=== PATIENT | male | born 1955 | race Caucasian/White ===

== ENCOUNTER → 2017-04-17 | Outpatient (CLI) | payer MEDICAID ==
[~2017-04-17] MED LIST: LISINOPRIL/HCTZ1 TA3 PO; LORTAB 5/500 501 TAB PO; NAPROSYN 500MG500 MG PO; TRAZODONE50 MG PO
[2017-04-17 15:19] LABS: LYMPH # 1.6 K/mm3 (0.7-4.5); LYMPH % 17.2 % (10-50)
[2017-04-17 15:32] LABS: HEMOGLOBIN 19.3 g/dL (14.1-18.0)
[2017-04-17 15:59] LABS: BUN 8 mg/dL (7-18); PROSTATE-SPECIFIC AG SCREEEN 2.4 ng/mL (0.0-4.0)
[2017-04-17 16:01] LABS: GFR (ESTIMATED) 99 ML/MIN (>60)
[2017-04-19 12:36] LABS: HBsAg Screen Negative (Negative); Hep A Ab, IgM Negative (Negative); Hep B Core Ab, IgM Negative (Negative); Hep C Virus Ab <0.1 (0.0-0.9)
== END ==
LOC: LAB 14:04
PROVIDERS: Nurse Practitioner Family
DX: I10 Essential (primary) hypertension (principal); Z80.42 Family history of malignant neoplasm of prostate; Z00.00 Encounter for general adult medical examination without abnormal findings
CPT/HCPCS: G0103